=== PATIENT | female | born 1995 | race African-American/Black ===

== ENCOUNTER 2017-01-11 22:23 | Emergency (ER) | payer OTHER ==
[~2017-01-11] VITALS: Ht 177.8 cm; Wt 60.8 kg
[2017-01-12] MEDS ORDERED: NAPROSYN500 MG PO (00:06)
[2017-01-12 00:30] VITALS: BP 110/76
== END 2017-01-12 00:33 | disposition home or self-care (01) ==
LOC: ER 22:23
DX: S16.1XXA Strain of muscle, fascia and tendon at neck level, initial encounter (principal); R00.2 Palpitations; F10.99 Alcohol use, unspecified with unspecified alcohol-induced disorder; V89.2XXA Person injured in unspecified motor-vehicle accident, traffic, initial encounter; Y93.89 Activity, other specified; Y92.89 Other specified places as the place of occurrence of the external cause; Y99.8 Other external cause status